=== PATIENT | male | born 1960 | race Hispanic/Latino ===

== ENCOUNTER 2021-02-21 14:53 | Inpatient (IN) | payer OTHER ==
[2021-02-21 15:38] LABS: Urine Blood 3+ (Negative); Urine Glucose 2+ (Negative); Urine Protein 3+ (Negative); Urine pH 5.5 (5.0-7.0)
[2021-02-21 15:42] LABS: Absolute Lymphocytes (CBC) 0.7 K/uL (0.7-4.9); Basophils % 0.1 % (0-1.3); Hematocrit 42.7 % (39.6-49.0); Lymphocytes % 6.3 % (15.3-44.8); MPV 9.9 fL (7.6-11.3); RBC Red Blood Cell Count 4.46 M/uL (4.33-5.43)
[2021-02-21] MEDS ORDERED: NA CHLORIDE 0.9% 4,000 ML ONE (15:56)
[2021-02-21] MEDS ORDERED: CEFEPIME 2 GM VIAL ONE (15:56)
[2021-02-21] MEDS ORDERED: NA CHLORIDE 0.9% 100 ML ONE (15:56)
[2021-02-21 16:03] LABS: ALT/SGPT 73 U/L (12-78); AST/SGOT 30 U/L (15-37); Albumin 3.8 g/dL (3.4-5.0); Alkaline Phosphatase 73 U/L (45-117); BUN Blood Urea Nitrogen 22 mg/dL (7-18); Bicarbonate 24 mmol/L (21-32); Bilirubin Direct 0.3 mg/dL (0-0.2); Bilirubin Total 0.8 mg/dL (0.2-1.0); Glucose Level 137 mg/dL (74-106); Lipase 105 U/L (73-393); Potassium 3.9 mmol/L (3.5-5.1); Protein, Total 7.2 g/dL (6.4-8.2); Sodium Level 137 mmol/L (136-145); Troponin (Emerg Dept Use Only) < 0.02 ng/mL (0.0-0.045)
--- NOTE | 2021-02-21 16:09 | RAD REPORT ---
EXAM DESCRIPTION: RAD - Chest Single View - 02/21/2021 4:04 pm CLINICAL HISTORY: FEVER Chest pain. COMPARISON: No comparisons FINDINGS: Portable technique limits examination quality. The lungs are grossly clear. The heart is normal in size. No displaced fractures. IMPRESSION: No acute intrathoracic process suspected.
[2021-02-21 16:10] LABS: Urine Bacteria >50 /HPF (NONE SEEN); Urine RBC 20-50 /HPF (NONE SEEN)
[2021-02-21 16:30] LABS: Protime INR 1.09
--- NOTE | 2021-02-21 16:31 | EDPHYS ---
[facility] Name: Darvin Panchal Age: 60 yrs Sex: Male : 1960 Arrival Date: 02/21/2021 Time: 14:56 Bed 2 Private MD: ED Physician Cristofer Torres HPI: 02/21 15:20 This 60 yrs old Male presents to ER via Ambulatory with complaints of Low cp Blood Pressure. 15:20 The patient presents with urinary symptoms, dysuria, urinary frequency, hematuria, cp perineal l pain. 15:20 Onset: The symptoms/episode began/occurred this morning. Associated signs and symptoms: cp Pertinent positives: dysuria, fever, hematuria, nausea, Pertinent negatives: abdominal pain, vomiting. Severity of symptoms: in the emergency department the symptoms are unchanged. Historical: - Allergies: 15:07 No Known Allergies; ca1 - PMHx: 15:07 Diabetes - NIDDM; Hypertension; High Cholesterol; ca1 - PSHx: 15:07 Appendectomy; ca1 - Immunization history:: Client reports receiving the 2nd dose of the Covid vaccine, Client reports receiving the 1st dose of the Covid vaccine, Flu vaccine is not up to date. - Social history:: Smoking status: Patient denies any tobacco usage or history of. ROS: 15:25 Constitutional: Negative for fever, poor PO intake. cp 15:25 Eyes: Negative for injury, pain, redness, and discharge. cp 15:25 ENT: Negative for ear pain, sore throat, difficulty swallowing, difficulty handling secretions. 15:25 Cardiovascular: Negative for chest pain, palpitations. 15:25 Respiratory: Negative for cough, shortness of breath, wheezing. 15:25 Abdomen/GI: Negative for abdominal pain, nausea, vomiting, and diarrhea. 15:25 : Positive for urinary symptoms. 15:25 Neuro: Negative for altered mental status, headache, weakness. 15:25 All other systems are negative. Exam: 15:18 ECG was reviewed by the Attending Physician. cp 15:25 Constitutional: The patient appears in no acute distress, alert, awake, cp non-diaphoretic, non-toxic, well developed, well nourished, obese. 15:25 Head/Face: Normocephalic, atraumatic. cp 15:25 Eyes: Periorbital structures: appear normal, Pupils: equal, round, and reactive to light and accomodation, Extraocular movements: intact throughout, Conjunctiva: normal, no exudate, no injection, Sclera: no appreciated abnormality, Lids and lashes: appear normal, bilaterally. 15:25 ENT: External ear(s): are unremarkable, Nose: is normal, Mouth: Lips: moist, Oral mucosa: moist, Posterior pharynx: Airway: no evidence of obstruction, patent. 15:25 Neck: ROM/movement: is normal, is supple, without pain, no range of motions limitations. 15:25 Chest/axilla: Inspection: normal, Palpation: is normal, no crepitus, no tenderness. 15:25 Cardiovascular: Rate: tachycardic, Rhythm: regular, Edema: is not appreciated, JVD: is not appreciated. 15:25 Respiratory: the patient does not display signs of respiratory distress, Respirations: cp normal, no use of accessory muscles, no retractions, labored breathing, is not present, Breath sounds: are clear throughout, no decreased breath sounds, no stridor, no wheezing. 15:25 Abdomen/GI: Inspection: abdomen appears normal, Bowel sounds: active, all quadrants, cp Palpation: abdomen is soft and non-tender, in all quadrants, rebound tenderness, is not appreciated. 15:25 Back: pain, is absent, ROM is normal. 15:25 Skin: no rash present. 15:25 Neuro: Orientation: to person, place \\T\\ time. Mentation: is normal, Cerebellar function: is grossly normal, Motor: moves all fours, strength is normal, Sensation: is normal. Vital Signs: 15:03 BP 88 / 63; Pulse 131; Resp 18 S; Temp 99.8; Pulse Ox 95% on R/A; Weight 122.47 kg (R); ca1 Height 5 ft. 8 in. (172.72 cm) (R); Pain 5/10; 16:00 BP 81 / 51; Pulse 117; Resp 19 S; Pulse Ox 95% on R/A; jd3 16:30 BP 83 / 52; Pulse 112; Resp 19 S; Pulse Ox 98% on R/A; jd3 17:00 BP 90 / 48; Pulse 113; Resp 18 S; Pulse Ox 99% on R/A; jd3 17:30 BP 79 / 50; Pulse 113; Resp 19 S; Pulse Ox 97% on R/A; jd3 17:45 BP 73 / 59 LA Supine (man/reg); Pulse 130; Resp 20; Pulse Ox 99% on R/A; Pain 2/10; kg 17:45 BP 73 / 47; Pulse 109; Resp 20 S; Pulse Ox 96% on R/A; jd3 18:00 BP 76 / 50; Pulse 111; Resp 19 S; Pulse Ox 95% on R/A; jd3 19:33 BP 89 / 40; Pulse 114; Resp 19; Pulse Ox 95% ; ea 19:52 BP 93 / 51; Pulse 113; Resp 18; Pulse Ox 95% ; ea 20:25 BP 87 / 54; Pulse 110; Resp 20; Pulse Ox 99% ; ea 20:59 BP 97 / 56; Pulse 111; Resp 22; Pulse Ox 100% ; ea 21:10 BP 95 / 62; Pulse 110; Resp 22; Pulse Ox 100% ; ea 15:03 Body Mass Index 41.05 (122.47 kg, 172.72 cm) ca1 Procedures: 19:24 Central Line: the site was prepped with Betadine, in sterile fashion, a triple lumen cp catheter was inserted, in the right femoral vein, in 1 attempts. placement was verified, by blood return, the site was dressed with Tegaderm, using sterile technique, the patient tolerated the procedure, well. MDM: 15:17 Patient medically screened. gely 15:30 Differential diagnosis: UTI, urinary retention, prostatitis, sepsis. cp 16:30 Data reviewed: vital signs, nurses notes, lab test result(s), EKG, radiologic studies, cp plain films. 16:30 Test interpretation: by ED physician or midlevel provider: ECG, plain radiologic cp studies. Counseling: I had a detailed discussion with the patient and/or guardian regarding: the historical points, exam findings, and any diagnostic results supporting the discharge/admit diagnosis, lab results, radiology results, the need for further work-up and treatment in the hospital. Physician consultation: Jona Salazar DO regarding admission, to the medical/surgical unit. patient's condition. 02/21 15:19 Order name: Urine Culture cp 02/21 15:19 Order name: Basic Metabolic Panel; Complete Time: 16:21 cp 02/21 17:21 Interpretation: Normal except: GLUC 137; BUN 22; GFR 64. cp 02/21 15:19 Order name: Blood Culture Adult (2) cp 02/21 15:19 Order name: CBC with Diff; Complete Time: 19:21 02/21 20:47 Interpretation: Normal except: WBC 11.30; PLT 144; STEPHANIE% 90.2; LYM% 6.3; MN% 3.1; NEUT A cp 10.2. 02/21 15:19 Order name: Ckmb; Complete Time: 16:21 cp 02/21 15:19 Order name: Lactate; Complete Time: 16:21 cp 02/21 15:19 Order name: LFT's; Complete Time: 16:21 cp 02/21 15:19 Order name: Lipase; Complete Time: 16:21 cp 02/21 15:19 Order name: Protime (+inr); Complete Time: 17:21 02/21 15:19 Order name: Troponin (emerg Dept Use Only); Complete Time: 16:21 cp 02/21 15:19 Order name: Urine Microscopic Only; Complete Time: 16:21 cp 02/21 15:37 Order name: Urine Dipstick-Ancillary; Complete Time: 17:22 EDME 02/21 17:22 Interpretation: Normal except: UGLUC 2+; UBLD 3+; UPROT 3+; UESTR 3+. cp 02/21 16:29 Order name: COVID-19 : Document "Date of Symptom Onset" if Symptomatic. 02/21 18:06 Order name: CBC Smear Scan; Complete Time: 19:21 EDME 02/21 18:10 Order name: NT PRO-BNP; Complete Time: 20:46 EDME 02/21 18:10 Order name: Basic Metabolic Panel [facility] 02/21 18:10 Order name: Basic Metabolic Panel EDME 02/21 18:10 Order name: Troponin I EDME 02/21 18:10 Order name: Troponin I; Complete Time: 20:46 EDME 02/21 18:10 Order name: Troponin I EDME 02/21 18:10 Order name: Troponin I EDME 02/21 18:11 Order name: CBC with Automated Diff EDME 02/21 18:11 Order name: CBC with Automated Diff EDME 02/21 18:11 Order name: Urinalysis EDME 02/21 18:35 Order name: SARS-COV-2 RT PCR; Complete Time: 19:21 EDME 24 19:57 Order name: Lactate Sepsis 2 HR Follow-up; Complete Time: 20:46 EDMS 05/24 20:20 Order name: Procalcitonin; Complete Time: 20:46 EDMS 05/24 20:46 Interpretation: Abnormal: Procalcitonin 7.98. cp 05/24 15:19 Order name: Chest Single View XRAY; Complete Time: 16:21 cp 02/21 15:19 Order name: Accucheck; Complete Time: 15:24 cp 02/21 15:19 Order name: Cardiac monitoring; Complete Time: 15:24 cp 02/21 15:19 Order name: EKG - Nurse/Tech; Complete Time: 15:24 cp 0524 15:19 Order name: IV Saline Lock - Large Bore; Complete Time: 15:24 cp 02/21 15:19 Order name: Labs collected and sent; Complete Time: 15:24 cp 02/21 15:19 Order name: O2 Per Protocol; Complete Time: 15:24 cp 02/21 15:19 Order name: O2 Sat Monitoring; Complete Time: 15:25 cp 02/21 15:19 Order name: Urine Dipstick-Ancillary (obtain specimen); Complete Time: 19:00 cp 02/21 15:19 Order name: Bladder Scanner: pre and post void; Complete Time: 18:37 cp 24 16:22 Order name: CT Abd/Pelvis - IV Contrast Only; Complete Time: 17:21 cp 24 17:22 Interpretation: Report reviewed. 02/21 18:11 Order name: Consistent Carb (ADA) 2000 EDMS EC:18 Rate is 127 beats/min. Rhythm is regular. DC interval is normal. QRS interval is cp normal. QT interval is normal. Interpreted by me. Reviewed by me. Administered Medications: 15:30 Drug: NS 0.9% (30 ml/kg) 30 ml/kg Route: IV; Rate: bolus; Site: right antecubital; kg 18:02 Follow up: IV Status: Completed infusion; IV Intake: 3660ml kg 15:30 Drug: Cefepime 2 grams Route: IVPB; Rate: 200 ml/hr; Infused Over: 30 mins; Site: right kg antecubital; 16:30 Follow up: Response: No adverse reaction; IV Intake: 100ml kg 16:30 Follow up: IV Status: Completed infusion; IV Intake: 100ml kg 17:00 Drug: Zofran (Ondansetron) 4 mg Route: IVP; Site: right antecubital; kg 18:04 Follow up: Response: No adverse reaction kg 17:49 Drug: LevaQUIN (levofloxacin) 750 mg Volume: 150 ml; Route: IVPB; Infused Over: 90 kg mins; Site: right antecubital; 19:10 Follow up: IV Status: Completed infusion ea 19:31 Drug: Levophed (norepinephrine) (4 mg/250 mL D5W 4 mcg/min Route: IV; Rate: calculated ea rate; Site: right femoral; 19:52 Drug: vancoMYCIN 2 grams Route: IVPB; Rate: calculated rate; Site: right antecubital; ea Disposition: 02/22 09:49 Co-signature as Attending Physician, Cristofer Torres MD I agree with the assessment and gely plan of care. Disposition: 02/21/21 16:30 Hospitalization ordered by Jona Salazar for Inpatient Admission. Preliminary diagnosis are Other sepsis, Urinary tract infection, site not specified. - Bed requested for Intensive Care Unit. - Status is Inpatient Admission. ea - Condition is Stable. - Problem is new. - Symptoms have improved. Signatures: Dispatcher [employer] [facility] Kelli Emmanuel RN RN dw Anderson, Corey, MD MD cha Attema, Lee, DATA ANALYSIS ASSISTANT-C DATA ANALYSIS ASSISTANT-Cla1 Cristofer Vicente PA PA cp Tiera Wharton RN RN ea Acob, Cheryl, RN RN ca1 Graham, Kristen kg Corrections: (The following items were deleted from the chart) 02/21 17:43 16:30 CORONAVIRUS ordered. EDME EDME 18:10 16:30 Hospitalization Ordered by Jona Salazar DO for Inpatient Admission. Preliminary cp diagnosis is Other sepsis; Urinary tract infection, site not specified. Bed requested for Telemetry/MedSurg (Inpatient). Status is Inpatient Admission. Condition is Stable. Problem is new. Symptoms have improved. cp 19:22 18:10 02/21/2021 16:30 Hospitalization Ordered by Jona Salazar DO for Inpatient dw Admission. Preliminary diagnosis is Other sepsis; Urinary tract infection, site not specified. Bed requested for Intensive Care Unit. Status is Inpatient Admission. Condition is Stable. Problem is new. Symptoms have improved. cp 21:18 19:22 02/21/2021 16:30 Hospitalization Ordered by Jona Salazar DO for Inpatient ea Admission. Preliminary diagnosis is Other sepsis; Urinary tract infection, site not specified. Bed requested for Intensive Care Unit. Status is Inpatient Admission. Condition is Stable. Problem is new. Symptoms have improved. dw
--- NOTE | 2021-02-21 16:31 | ER ---
Nurse's Notes [facility] Name: Darvin Panchal Age: 60 yrs Sex: Male : 1960 Arrival Date: 02/21/2021 Time: 14:56 Bed 2 Private MD: Diagnosis: Other sepsis;Urinary tract infection, site not specified Presentation: 02/21 15:03 Chief complaint: Patient states: Woke up this morning, had pain on my RLQ going to my R ca1 lower back. Burning with urination, pressure when trying to urinate. Had a fever this morning. Was at my doctor and they said I have a low BP and I also had a fever. Tylenol taken at 300 mins [employer]POSITE [employer]. Reports blood in urine. Coronavirus screen: Client denies travel out of the [place] in the last 14 days. fever, Client presents with at least one sign or symptom that may indicate coronavirus-19. Standard/surgical mask placed on the client. Provider contacted for isolation considerations. Ebola Screen: Patient negative for fever greater than or equal to 101.5 degrees Fahrenheit, and additional compatible Ebola Virus Disease symptoms Patient denies exposure to infectious person. Patient denies travel to an Ebola-affected area in the 21 days before illness onset. No symptoms or risks identified at this time. Initial Sepsis Screen: Does the patient meet any 2 criteria? Systolic BP < 90 mmHg. HR > 90 bpm. Does the patient have a suspected source of infection? Yes: Dysuria/Frequency/Urgency/UTI. Risk Assessment: Do you want to hurt yourself or someone else? Patient reports no desire to harm self or others. Onset of symptoms was February 21, 2021. 15:03 Method Of Arrival: Ambulatory ca1 15:03 Acuity: FLORECITA 2 ca1 Historical: - Allergies: 15:07 No Known Allergies; ca1 - PMHx: 15:07 Diabetes - NIDDM; Hypertension; High Cholesterol; ca1 - PSHx: 15:07 Appendectomy; ca1 - Immunization history:: Client reports receiving the 2nd dose of the Covid vaccine, Client reports receiving the 1st dose of the Covid vaccine, Flu vaccine is not up to date. - Social history:: Smoking status: Patient denies any tobacco usage or history of. Screenin:00 Abuse screen: Denies threats or abuse. Denies injuries from another. Nutritional kg screening: No deficits noted. Tuberculosis screening: No symptoms or risk factors identified. Fall Risk No fall in past 12 months (0 pts). No secondary diagnosis (0 pts). IV access (20 points). Ambulatory Aid- None/Bed Rest/Nurse Assist (0 pts). Gait- Normal/Bed Rest/Wheelchair (0 pts) Mental Status- Oriented to own ability (0 pts). Total Larose Fall Scale indicates No Risk (0-24 pts). Assessment: 15:45 General: Appears in no apparent distress. Behavior is calm, cooperative, appropriate kg for age, quiet. Pain: Complains of pain in suprapubic area, right lower quadrant and left lower quadrant Pain radiates to low back area, mid back area, left mid back and right mid back Pain currently is 4 out of 10 on a pain scale. at worst was 9 out of 10 on a pain scale. level that patient reports is acceptable is 4 out of 10 on a pain scale. Quality of pain is described as burning, aching, crampy, sharp, Pain began 2-3 days ago. Neuro: No deficits noted. Level of Consciousness is awake, alert, obeys commands, Oriented to person, place, time, situation. Cardiovascular: Heart tones S1 S2 Capillary refill < 3 seconds. Respiratory: Airway is patent Breath sounds are clear bilaterally. GI: Abdomen is distended, obese, Rectal exam: Pt stated, "I get pain in my rectum when I need to urinate." Bowel sounds present X 4 quads. Abd is soft Abdomen is tender to palpation in right lower quadrant and left lower quadrant. : Reports. : No deficits noted. Reports burning with urination, since 02/20 cramping, flank(s) lower quadrant(s) lower back inability to void, since Pt stated it feels like I'm not peeing much. EENT: No deficits noted. Derm: No deficits noted. Musculoskeletal: No deficits noted. 17:00 Reassessment: No changes from previously documented assessment. kg 17:45 Reassessment: Patient states symptoms have not improved. kg 19:10 General: Appears in no apparent distress. Behavior is calm, cooperative, appropriate ea for age. Pain: Complains of pain in left lower quadrant and right lower quadrant and suprapubic area. Neuro: Level of Consciousness is awake, alert, obeys commands, Oriented to person, place, time, situation. Cardiovascular: Patient's skin is warm and dry. Respiratory: Airway is patent Respiratory effort is even, unlabored, Respiratory pattern is regular, symmetrical. Derm: Skin is pink, warm \\T\\ dry. 19:43 Reassessment: Bladder scanned patient after voiding and showed 27 ml in bladder.. kg 20:59 Reassessment: Patient and/or family updated on plan of care and expected duration. Pain ea level reassessed. Patient is alert, oriented x 3, equal unlabored respirations, skin warm/dry/pink. 21:09 Reassessment: Patient and/or family updated on plan of care and expected duration. Pain ea level reassessed. Patient is alert, oriented x 3, equal unlabored respirations, skin warm/dry/pink. Report given to receiving nurse. Pt taken to ED ICU hold area, pt tolerating well. Vital Signs: 15:03 BP 88 / 63; Pulse 131; Resp 18 S; Temp 99.8; Pulse Ox 95% on R/A; Weight 122.47 kg (R); ca1 Height 5 ft. 8 in. (172.72 cm) (R); Pain 5/10; 16:00 BP 81 / 51; Pulse 117; Resp 19 S; Pulse Ox 95% on R/A; jd3 16:30 BP 83 / 52; Pulse 112; Resp 19 S; Pulse Ox 98% on R/A; jd3 17:00 BP 90 / 48; Pulse 113; Resp 18 S; Pulse Ox 99% on R/A; jd3 17:30 BP 79 / 50; Pulse 113; Resp 19 S; Pulse Ox 97% on R/A; jd3 17:45 BP 73 / 59 LA Supine (man/reg); Pulse 130; Resp 20; Pulse Ox 99% on R/A; Pain 2/10; kg 17:45 BP 73 / 47; Pulse 109; Resp 20 S; Pulse Ox 96% on R/A; jd3 18:00 BP 76 / 50; Pulse 111; Resp 19 S; Pulse Ox 95% on R/A; jd3 19:33 BP 89 / 40; Pulse 114; Resp 19; Pulse Ox 95% ; ea 19:52 BP 93 / 51; Pulse 113; Resp 18; Pulse Ox 95% ; ea 20:25 BP 87 / 54; Pulse 110; Resp 20; Pulse Ox 99% ; ea 20:59 BP 97 / 56; Pulse 111; Resp 22; Pulse Ox 100% ; ea 21:10 BP 95 / 62; Pulse 110; Resp 22; Pulse Ox 100% ; ea 15:03 Body Mass Index 41.05 (122.47 kg, 172.72 cm) ca1 ED Course: 14:56 Patient arrived in ED. bp1 15:06 Triage completed. ca1 15:07 Arm band placed on right wrist. ca1 15:09 Cristofer Vicente PA is PHCP. cp 15:09 Cristofer Torres MD is Attending Physician. cp 15:10 Placed in gown. Bed in low position. Call light in reach. Side rails up X2. Adult w/ kg patient. 15:15 Inserted saline lock: 20 gauge in right antecubital area, using aseptic technique. kg 15:20 Keisha Munguia is Primary Nurse. kg 16:04 Inserted saline lock: 20 gauge in left forearm, using aseptic technique. Blood mt collected. 16:05 Chest Single View XRAY In Process Unspecified. EDMS 16:30 Jona Salazar DO is Hospitalizing Provider. cp 17:07 CT Abd/Pelvis - IV Contrast Only In Process Unspecified. EDMS 19:00 Urinalysis Sent. kg 19:00 COVID-19 : Document "Date of Symptom Onset" if Symptomatic. Sent. kg 19:00 Assisted provider with central line placement. Set up central line tray. Triple lumen ea line placed in right femoral. Line placed by Cristofer FALL Placement verified by blood return, Dressed with Tegaderm. 19:33 Patient admitted, IV remains in place. ea Administered Medications: 15:30 Drug: NS 0.9% (30 ml/kg) 30 ml/kg Route: IV; Rate: bolus; Site: right antecubital; kg 18:02 Follow up: IV Status: Completed infusion; IV Intake: 3660ml kg 15:30 Drug: Cefepime 2 grams Route: IVPB; Rate: 200 ml/hr; Infused Over: 30 mins; Site: right kg antecubital; 16:30 Follow up: Response: No adverse reaction; IV Intake: 100ml kg 16:30 Follow up: IV Status: Completed infusion; IV Intake: 100ml kg 17:00 Drug: Zofran (Ondansetron) 4 mg Route: IVP; Site: right antecubital; kg 18:04 Follow up: Response: No adverse reaction kg 17:49 Drug: LevaQUIN (levofloxacin) 750 mg Volume: 150 ml; Route: IVPB; Infused Over: 90 kg mins; Site: right antecubital; 19:10 Follow up: IV Status: Completed infusion ea 19:31 Drug: Levophed (norepinephrine) (4 mg/250 mL D5W 4 mcg/min Route: IV; Rate: calculated ea rate; Site: right femoral; 19:52 Drug: vancoMYCIN 2 grams Route: IVPB; Rate: calculated rate; Site: right antecubital; ea Intake: 16:30 IV: 100ml; Total: 100ml. kg 16:30 IV: 100ml; Total: 200ml. kg 18:02 IV: 3660ml; Total: 3860ml. kg Outcome: 16:30 Decision to Hospitalize by Provider. cp 19:33 Instructed on the need for admit, Demonstrated understanding of instructions. ea 21:11 Admitted to ICU accompanied by nurse, via stretcher, room ED ICU 10, Report called to ea Receiving nurse in ED ICU 21:11 Condition: stable 21:18 Patient left the ED. ea Signatures: Dispatcher [employer] EDMS Cristofer Vicente PA PA cp Thompson, Moriah mt Antunez, Elena, RN RN ea Davies, Jonathon, RN RN jd3 Acob, Cheryl, RN RN [facility] Lesli Raman Kristen kg Corrections: (The following items were deleted from the chart) 19:31 17:50 General: Appears in no apparent distress. Behavior is calm, cooperative, kg appropriate for age, quiet, kg 19:31 17:50 Pain: Complains of pain in suprapubic area, right lower quadrant and left lower kg quadrant Pain radiates to low back area, mid back area, left mid back and right mid back Pain currently is 4 out of 10 on a pain scale. at worst was 9 out of 10 on a pain scale. level that patient reports is acceptable is 4 out of 10 on a pain scale. Quality of pain is described as burning, aching, crampy, sharp, Pain began 2-3 days ago. kg 19:31 17:50 Neuro: No deficits noted. Level of Consciousness is awake, alert, obeys commands, kg Oriented to person, place, time, situation, kg 19:31 17:50 Cardiovascular: Heart tones S1 S2 Capillary refill < 3 seconds kg kg 19:31 17:50 Respiratory: Airway is patent Breath sounds are clear bilaterally. kg kg 19:31 17:50 GI: No deficits noted. kg kg 19:31 17:50 : No deficits noted. kg kg 19:31 17:50 EENT: No deficits noted. kg kg 19:31 17:50 : No deficits noted. Reports burning with urination, since 02/20 cramping, kg flank(s) lower quadrant(s) lower back inability to void, since Pt stated it feels like I'm not peeing much kg 19:31 17:50 Derm: No deficits noted. kg kg 19:31 17:50 Musculoskeletal: No deficits noted. kg kg
--- NOTE | 2021-02-21 17:18 | RAD REPORT ---
EXAM DESCRIPTION: CTAbdomen Pelvis W Contrast - 02/21/2021 5:07 pm CLINICAL HISTORY: Abdominal pain. ABD PAIN COMPARISON: No comparisons TECHNIQUE: Biphasic CT imaging of the abdomen and pelvis was performed with 100 ml non-ionic IV cont rast. All CT scans are performed using dose optimization technique as appropriate and may include automated exposure control or mA/KV adjustment according to patient size. FINDINGS: The lung bases are clear. There is a diffuse fatty liver infiltration pattern. No aggressive liver lesion or biliary dilatation . The spleen, pancreas, adrenal glands and kidneys within limits. No bowel obstruction, free air, free fluid or abscess. The appendix is not identified as a discrete structure, however, no secondary findings of appendicitis are identified. No evidence of significan t lymphadenopathy. No suspicious bony findings. Moderate fat containing left inguinal hernia. Significant thickening of the urinary bladder is present. The fat surrounding the urinary bladder pro state/seminal vesicles is mildly inflamed. IMPRESSION: Significant thickening of urinary bladder is compatible with cystitis. Fat surrounding seminal vesicles, prostate and urinary bladder is mildly inflamed without abscess.
[2021-02-21] MEDS ORDERED: Levofloxacin 750mg IV 750 MG/150 ML BAG IV ONE (17:59)
[2021-02-21] MEDS ORDERED: ONDANSETRON 4 MG/2 ML VIAL ONE ×2 (17:59→22:14)
[2021-02-21] MEDS ORDERED: LABETALOL 20 MG/4ML SYRINGE IV PRN (18:03)
[2021-02-21] MEDS ORDERED: ACETAMINOPHEN 500 MG TAB PO PRN (18:05)
[2021-02-21 18:06] LABS: Platelet Estimate DECR; White Blood Cell Scan OK (OK)
[2021-02-21 18:07] LABS: Blood Morphology Comment NOT SEEN (NOT SEEN)
--- NOTE | 2021-02-21 18:12 | P.HP ---
Certification for Inpatient Patient admitted to: Inpatient With expected LOS: >2 Midnights Patient will require the following post-hospital care: None Practitioner: I am a practitioner with admitting privileges, knowledge of patient current condition, hospital course, and medical plan of care. Services: Services provided to patient in accordance with Admission requirements found in Title 42 Section 412.3 of the Code of Federal Regulations Patient History Date of Service: 02/21/21 Reason for admission: UTI History of Present Illness: Patient is a 60-year-old male with a past medical history significant for BPH, hypertension, DM 2 and HLD who presents with complaint of suprapubic pain and burning with urination. Patient reports that pain radiates down his groin area, prostate\ scrotum and bilateral lower extremities. Patient reported that symptoms started yesterday. Patient reports associated signs and symptoms of urinary urgency, difficulty with urination, mild hematuria and nausea. Patient indicated that he has been taking advil for his fever. Patient reported that he went to see his PCP today and was referred by his PCP to come to the hospital for medical evaluation due to fever and low blood pressure. Home medications list reviewed: No - Past Medical/Surgical History -: BPH -: DM2 -: HTN -: HLD Past Surgical History: Unable to obtain - Social History Smoking Status: Former smoker Alcohol use: Yes CD- Drugs: No Caffeine use: Yes Place of Residence: Home Review of Systems General: Fever, Malaise Eyes: Unremarkable ENT: Unremarkable Respiratory: Unremarkable Cardiovascular: Unremarkable Gastrointestinal: Nausea, Abdominal Pain Genitourinary: Dysuria, Frequency, Urgency, Hematuria, As per HPI Integumentary: Unremarkable Neurological: Unremarkable Lymphatics: Unremarkable Physical Examination - Physical Exam General: Alert, In no apparent distress, Oriented x3 HEENT: Atraumatic, PERRLA, Mucous membr. moist/pink, EOMI, Sclerae nonicteric Neck: Supple, 2+ carotid pulse no bruit, No LAD, Without JVD or thyroid abnormality Respiratory: Clear to auscultation bilaterally, Normal air movement Cardiovascular: No edema, Regular rate/rhythm, Normal S1 S2 Capillary refill: Brisk Gastrointestinal: Normal bowel sounds, Tenderness (Suprapubic ) Musculoskeletal: No clubbing, No tenderness Integumentary: No rashes, No erythema Neurological: Normal gait, Normal speech, Normal strength at 5/5 x4 extr, Normal tone, Normal affect Lymphatics: No axilla or inguinal lymphadenopathy External genitalia: Deferred Rectal: Deferred - Studies Laboratory Data (last 24 hrs) 02/21/21 15:20: PT 12.5, INR 1.09 02/21/21 15:20: WBC 11.30 H, Hgb 14.0, Hct 42.7, Plt Count 144 L 02/21/21 15:20: Sodium 137, Potassium 3.9, BUN 22 H, Creatinine 1.17, Glucose 137 H, Total Bilirubin 0.8, AST 30, ALT 73, Alkaline Phosphatase 73, Lipase 105 Assessment and Plan - Plan --Sepsis with septic shock. Patient admitted to ICU. Blood cultures pending. Patient given bolus IV hydration in the ER but did not respond appropriately. Patient placed on Levophed drip. Continue antibiotics. Will continue to monitor BP and titrate Drip as appropriate. --Severe UTI POA. Continue antibiotics. --Lactic acidosis. Will trend lactic acid. Continue IV hydration and antibiotics. --Mild leukocytosis. Blood cultures pending. Continue antibiotics. --Prostatitis. As noted on CT abdomen. Continue antibiotics. --Acute pain. We will manage pain with current pain medication regimen. --BPH. Continue home medication. --DM 2. BS monitoring with sliding scale insulin. --HLD. Continue statin. -- DVT prophylaxis with Lovenox subQ. Discharge Plan: Home Plan to discharge in: Greater than 2 days - Advance Directives Does patient have a Living Will: No Does patient have a Durable POA for Healthcare: No - Code Status/Comfort Care Code Status Assessed: Yes Code Status: Full Code Critical Care: No
[2021-02-21] MEDS ORDERED: NA CHLORIDE 0.9% 1,000 ML IV SCH (19:00)
[2021-02-21] MEDS ORDERED: NOREPINEPHRINE 4mg/D5W 250mL 4 MG/250 ML BAG IV ONE (19:29)
[2021-02-21] MEDS ORDERED: VANCOMYCIN 1 GM/VIAL ONE (19:58)
[2021-02-21] MEDS ORDERED: NA CHLORIDE 0.9% 500 ML ONE (19:58)
[2021-02-21] MEDS ORDERED: NOREPINEPHRINE 4 MG in D5W 250 ML IV PRN (20:52)
[2021-02-21] MEDS ORDERED: VANCOMYCIN/NS 1 gm 1 GM/250 ML BAG IVPB SCH (20:52)
[2021-02-21] MEDS: INSULIN -REGULAR HUMAN 50 UNIT/0.5 ML ML SQ SCH (21:00)
[2021-02-21] MEDS ORDERED: CEFEPIME 1 GM/VIAL IV SCH (21:00)
[2021-02-21] MEDS ORDERED: CEFTRIAXONE/SWI 1gm 1 GM/10 ML SYR IV SCH (21:00)
[2021-02-21 21:46] VITALS: BMI 41.0
[2021-02-21] MEDS: ONDANSETRON 4 MG/2 ML VIAL IV PRN (21:57)
[2021-02-21] MEDS: NA CHLORIDE 0.9% 1,000 ML IV SCH (21:57)
[2021-02-21] MEDS ORDERED: ATORVASTATIN 20 MG TAB ONE (22:14)
[2021-02-21] MEDS ORDERED: NA CHLORIDE 0.9% 1,000 ML ONE (22:14)
--- NOTE | 2021-02-21 22:31 | P.INFCA ---
Sepsis Focused Assessment - Focused Assessment Complete? Sepsis Focused Assessment Completed?: Yes - Sepsis Screen Result Septic Shock: Positive - Evaluation Current stage of sepsis: Septic shock - Vital Signs Reviewed: Yes Heart rate: 110 Blood Pressure: 95/62 Respiratory Rate: 22 - Examination Date exam was performed: 02/21/21 Time exam was performed: 21:30 Heart: S1, S2, Tachycardia Lungs: Clear bilaterally Peripheral pulses: 2+ Slightly diminished Peripheral pulse location: Radial Capillary refill: <2 Seconds Skin examination: Normal turgor
[2021-02-21] MEDS ORDERED: ATORVASTATIN 40 MG TAB PO ONE (23:00)
[2021-02-22] MEDS ORDERED: NOREPINEPHRINE 4mg/D5W 250mL 4 MG/250 ML BAG IV ONE (01:34)
[2021-02-22] MEDS: NA CHLORIDE 0.9% 1,000 ML IV SCH ×3 (04:43→20:06)
[2021-02-22] MEDS ORDERED: NA CHLORIDE 0.9% 1,000 ML ONE ×2 (05:01→12:15)
[2021-02-22 05:19] LABS: Absolute Lymphocytes (CBC) 0.9 K/uL (0.7-4.9); Basophils % 0.1 % (0-1.3); Hematocrit 37.5 % (39.6-49.0); Lymphocytes % 4.9 % (15.3-44.8); RBC Red Blood Cell Count 3.93 M/uL (4.33-5.43)
[2021-02-22 05:36] LABS: Potassium 4.6 mmol/L (3.5-5.1)
[2021-02-22 06:43] LABS: Platelet Estimate DECR
[2021-02-22 06:44] LABS: Blood Morphology Comment NOT SEEN (NOT SEEN)
[2021-02-22] MEDS: INSULIN -REGULAR HUMAN 50 UNIT/0.5 ML ML SQ SCH ×4 (07:29→21:00)
[2021-02-22] MEDS ORDERED: PNEUMOCOCCAL VACCINE 0.5 ML IMVAC ONE (09:00)
[2021-02-22] MEDS: ENOXAPARIN 40 MG/0.4 ML SQ SCH (09:31)
[2021-02-22] MEDS: CEFEPIME/SWI 1gm 10 ML IV SCH ×2 (09:31→22:15)
[2021-02-22] MEDS: HYDROCODONE/APAP 5/325 MG TAB PO PRN ×3 (09:40→22:04)
[2021-02-22] MEDS ORDERED: CEFEPIME/SWI 1gm 10 ML ONE ×2 (09:46→22:27)
[2021-02-22] MEDS ORDERED: ENOXAPARIN 40 MG/0.4 ML SQ ONE (09:46)
[2021-02-22] MEDS ORDERED: HYDROCODONE/APAP 5/325 MG TAB ONE ×2 (09:59→16:01)
[2021-02-22 10:00] LABS: Urine Appearance TURBID (Clear); Urine Bilirubin NEGATIVE (Negative); Urine Blood 2+ (Negative); Urine Color YELLOW (Yellow); Urine Glucose 3+ (Negative); Urine Protein TRACE (Negative); Urine Urobilinogen 0.2 mg/dL (0.2-1.0); Urine pH 5.5 (5.0-7.0)
[2021-02-22 10:04] LABS: Urine Microscopic Reflex ORDER UMIC
[2021-02-22 10:27] LABS: Urine RBC 20-50 /HPF (NONE SEEN)
[2021-02-22 10:29] LABS: Urine Bacteria 20-50 /HPF (NONE SEEN)
[2021-02-22 10:30] LABS: Urine Sperm PRESENT (NONE SEEN)
--- NOTE | 2021-02-22 11:33 | EKG ---
Test Date: 2021-02-21 Test Time: 15:12:02 Hat Mender: TYRONE MEASUREMENT RESULTS: Intervals: Rate: 127 KS: 130 QRSD: 100 QT: 298 QTc: 433 [place]: P: 63 KS: 130 QRS: 85 T: 47 INTERPRETIVE STATEMENTS: Sinus tachycardia Otherwise normal ECG No previous ECG available for comparison Electronically Signed On 02-22-21 11:31:09 CDT by Juanito Coffey
[2021-02-22] MEDS: VANCOMYCIN 2 GM in NA CHLORIDE 0.9% 500 ML IVPB SCH (14:22)
--- NOTE | 2021-02-22 17:24 | P.PN ---
Subjective Date of Service: 02/22/21 Chief Complaint: UTI Subjective: Improving (levophed weaned off this morning, patient feeling better, continues with some dysuria and headache.) Review of Systems 10-point ROS is otherwise unremarkable Physical Examination - Vital Signs Temperature: 98.7 F Blood Pressure: 115/74 Pulse: 99 Respirations: 21 Pulse Ox (%): 96 - Studies Laboratory Data (last 24 hrs) 02/21/21 15:20: WBC 11.30 H, Hgb 14.0, Hct 42.7, Plt Count 144 L Assessment & Plan Physician Review Additional Text: Physical Exam General: Alert, In no apparent distress, Oriented x3 HEENT: Normal conjunctiva, sclerae anicteric, PERRL Respiratory: Clear to auscultation bilaterally, Normal air movement Cardiovascular: No edema, Regular rate/rhythm, Normal S1 S2 Gastrointestinal: Normal bowel sounds, mild suprapubic TTP, no rebound Integumentary: No rashes, No erythema Neurological: Normal gait, Normal speech, Normal strength at 5/5 x4 extr Assessment and Plan Sepsis with septic shock secondary to urinary tract infection/prostatitis Bladder pressure/pain BPH Diabetes mellitus type 2, onv-gogcrwv-jxwwogenc HLD -continue empiric antibiotic coverage with cefepime and vancomycin -Levophed weaned off this morning -patient's blood pressure has not remained stable off the pressor support -patient has okay to be transferred to the floor -continue gentle IV fluids, patient with minimal p.o. intake -patient reports rectal pressure along with suprapubic pain was pressure, and dysuria. Concern for prostatitis -urine and blood cultures pending Dispo: anticipate dc home, likely in ~2 days, pending cultures, unclear if will need IV antibiotics at this time Time Spent Managing Pts Care (In Minutes): 40
[2021-02-22] MEDS: ATORVASTATIN 40 MG TAB PO SCH (20:07)
[2021-02-22] MEDS ORDERED: CEFOXITIN SODIUM 1 GM/VIAL ONE (21:05)
[2021-02-22] MEDS: ONDANSETRON 4 MG/2 ML VIAL IV PRN (22:04)
[2021-02-23] MEDS: HYDROCODONE/APAP 5/325 MG TAB PO PRN ×4 (04:23→23:09)
[2021-02-23] MEDS: NA CHLORIDE 0.9% 1,000 ML IV SCH (06:12)
[2021-02-23 06:16] LABS: Absolute Lymphocytes (CBC) 0.7 K/uL (0.7-4.9); Basophils % 0.2 % (0-1.3); Hematocrit 35.3 % (39.6-49.0); MPV 9.5 fL (7.6-11.3); RBC Red Blood Cell Count 3.65 M/uL (4.33-5.43)
[2021-02-23 06:48] LABS: ALT/SGPT 39 U/L (12-78); AST/SGOT 18 U/L (15-37); Albumin 2.7 g/dL (3.4-5.0); Alkaline Phosphatase 58 U/L (45-117); BUN Blood Urea Nitrogen 12 mg/dL (7-18); Bicarbonate 22 mmol/L (21-32); Bilirubin Total 0.6 mg/dL (0.2-1.0); Glucose Level 100 mg/dL (74-106); Protein, Total 6.1 g/dL (6.4-8.2); Sodium Level 141 mmol/L (136-145)
[2021-02-23 06:49] LABS: Magnesium 1.9 mg/dL (1.8-2.4)
[2021-02-23 07:05] LABS: Blood Morphology Comment NOT SEEN (NOT SEEN); Platelet Estimate DECR; White Blood Cell Scan OK (OK)
[2021-02-23] MEDS: INSULIN -REGULAR HUMAN 50 UNIT/0.5 ML ML SQ SCH ×4 (07:30→21:00)
[2021-02-23] MEDS: ENOXAPARIN 40 MG/0.4 ML SQ SCH (08:36)
[2021-02-23] MEDS: VANCOMYCIN 2 GM in NA CHLORIDE 0.9% 500 ML IVPB SCH (09:00)
[2021-02-23] MEDS: CEFEPIME/SWI 1gm 10 ML IV SCH ×2 (09:51→21:43)
[2021-02-23] MEDS ORDERED: ACETAMINOPHEN 500 MG TAB PO PRN (16:06)
--- NOTE | 2021-02-23 16:10 | P.PN ---
Subjective Date of Service: 02/23/21 Chief Complaint: UTI Subjective: Improving (feeling better, vitals stable/WNL, mild dysuria, +headache, minimal nausea) Review of Systems 10-point ROS is otherwise unremarkable Physical Examination - Vital Signs Temperature: 98.5 F Blood Pressure: 134/56 Pulse: 85 Respirations: 18 Pulse Ox (%): 97 - Studies Microbiology Data (last 24 hrs): 02/21/21 15:25 Clean Catch Urine [place] Count - Final >100,000 CFU/ML. 02/21/21 15:25 Clean Catch Urine - Final Escherichia Coli Assessment & Plan Physician Review Additional Text: Physical Exam General: Alert, In no apparent distress, Oriented x3 HEENT: Normal conjunctiva, sclerae anicteric, PERRL Respiratory: Clear to auscultation bilaterally, Normal air movement Cardiovascular: No edema, Regular rate/rhythm, Normal S1 S2 Gastrointestinal: Normal bowel sounds, no tenderness Integumentary: No rashes, No erythema Neurological: Normal gait, Normal speech, normal affect Assessment and Plan Sepsis with septic shock secondary to urinary tract infection/prostatitis Bladder pressure/pain BPH Diabetes mellitus type 2, wom-nmxseos-rxuzfnoni HLD -continue empiric antibiotic coverage with cefepime and vancomycin, urine culture with GNR, blood NGTD, can likely dc vanc today -vitals stable, WNL -leukocytosis improved -dc IVF, tolerating more diet -final urine and blood cultures pending Dispo: anticipate dc home, likely tomorrow, unclear if will need IV antibiotics at this time, pending cultures Time Spent Managing Pts Care (In Minutes): 35
[2021-02-23] MEDS: ATORVASTATIN 40 MG TAB PO SCH (21:43)
[2021-02-24 03:51] LABS: Absolute Lymphocytes (CBC) 0.7 K/uL (0.7-4.9); Basophils % 0.1 % (0-1.3); Hematocrit 33.9 % (39.6-49.0); Lymphocytes % 9.8 % (15.3-44.8); MPV 9.2 fL (7.6-11.3); RBC Red Blood Cell Count 3.58 M/uL (4.33-5.43)
[2021-02-24 04:05] LABS: ALT/SGPT 39 U/L (12-78); AST/SGOT 22 U/L (15-37); Albumin 2.5 g/dL (3.4-5.0); Alkaline Phosphatase 59 U/L (45-117); BUN Blood Urea Nitrogen 10 mg/dL (7-18); Bicarbonate 25 mmol/L (21-32); Bilirubin Total 0.5 mg/dL (0.2-1.0); Glucose Level 120 mg/dL (74-106); Magnesium 1.7 mg/dL (1.8-2.4); Potassium 3.8 mmol/L (3.5-5.1); Protein, Total 6.2 g/dL (6.4-8.2); Sodium Level 141 mmol/L (136-145)
[2021-02-24] MEDS: HYDROCODONE/APAP 5/325 MG TAB PO PRN (06:07)
[2021-02-24] MEDS: INSULIN -REGULAR HUMAN 50 UNIT/0.5 ML ML SQ SCH (07:30)
--- NOTE | 2021-02-24 08:32 | P.DS ---
Admission Date: 02/21/21 Discharge Date: 02/24/21 Disposition: ROUTINE DISCHARGE Discharge Condition: GOOD Reason for Admission: Septic Shock, UTI/Prostatitis Procedures: CXR (02/21): The lungs are grossly clear. The heart is normal in size. No displaced fractures. CT Abd/pelvis (02/21): Significant thickening of urinary bladder is compatible with cystitis. Fat surrounding seminal vesicles, prostate and urinary bladder is mildly inf lamed without abscess. Problem list Sepsis with septic shock secondary to urinary tract infection/prostatitis Bladder and rectal pressure/pain BPH Diabetes mellitus type 2, izm-jtspwum-mvxpgilar HLD Brief History of Present Illness: 60-year-old male with a past medical history significant for BPH, hypertension, DM 2 and HLD who presents with complaint of suprapubic pain and burning with urination. Patient reports that pain radiates down his groin area, prostate\ scrotum and bilateral lower extremities. Patient reported that symptoms started yesterday. Patient reports associated signs and symptoms of urinary urgency, difficulty with urination, mild hematuria and nausea. Patient indicated that he has been taking advil for his fever. Patient reported that he went to see his PCP today and was referred by his PCP to come to the hospital for medical evaluation due to fever and low blood pressure. Hospital Course: The patient initially presented with septic shock and required Levophed. He was quickly weaned off of pressors and continued to improve. He remained afebrile, pain improved, leukocytosis resolved. Blood cultures were negative, urine culture grew pansensitive E. coli. Patient was discharged home with 4 weeks of Levaquin to cover for prostatitis. Follow up with PCP in 3-5 days Follow up with urology in 3-4 weeks. Vital Signs/Physical Exam: Physical Exam General: Alert, In no apparent distress, Oriented x3 HEENT: Normal conjunctiva, sclerae anicteric, PERRL Respiratory: Clear to auscultation bilaterally, Normal air movement Cardiovascular: No edema, Regular rate/rhythm, Normal S1 S2 Gastrointestinal: Normal bowel sounds, no tenderness Integumentary: No rashes, No erythema Neurological: Normal gait, Normal speech, normal affect Temp Pulse Resp BP Pulse Ox 98.3 F 80 17 136/72 96 02/24/21 04:00 02/24/21 04:00 02/24/21 06:07 02/24/21 04:00 02/24/21 06:07 Laboratory Data at Discharge: WBC 6.90 K/uL (4.3-10.9) D 02/24/21 03:25 Hgb 11.7 g/dL (13.6-17.9) L 02/24/21 03:25 Hct 33.9 % (39.6-49.0) L 02/24/21 03:25 Plt Count 80 K/uL (152-406) L 02/24/21 03:25 PT 12.5 SECONDS (9.5-12.5) 02/21/21 15:20 INR 1.09 02/21/21 15:20 Sodium 141 mmol/L (136-145) 02/24/21 03:25 Potassium 3.8 mmol/L (3.5-5.1) 02/24/21 03:25 BUN 10 mg/dL (7-18) 02/24/21 03:25 Creatinine 0.55 mg/dL (0.55-1.3) 02/24/21 03:25 Glucose 120 mg/dL (74-106) H 02/24/21 03:25 Magnesium 1.7 mg/dL (1.8-2.4) L 02/24/21 03:25 Total Bilirubin 0.5 mg/dL (0.2-1.0) 02/24/21 03:25 AST 22 U/L (15-37) 02/24/21 03:25 ALT 39 U/L (12-78) 02/24/21 03:25 Alkaline Phosphatase 59 U/L (45-117) 02/24/21 03:25 Troponin I < 0.02 ng/mL (0.0-0.045) 02/22/21 05:00 Lipase 105 U/L (73-393) 02/21/21 15:20 Home Medications: RX: Ascorbic Acid [Vitamin C] 1,000 mg PO DAILY 02/21/21 RX: Echinacea 500 mg PO DAILY 02/21/21 RX: Empagliflozin [Jardiance] 25 mg PO DAILY 02/21/21 RX: Ergocalciferol (Vitamin D2) [Vitamin D2] 125 mg PO DAILY 02/21/21 RX: Furosemide 20 mg PO DAILY 02/21/21 RX: Metoprolol Tartrate [Lopressor*] 25 mg PO DAILY 02/21/21 RX: Potassium Chloride 10 meq PO DAILY 02/21/21 RX: Pravastatin Sodium 40 mg PO BEDTIME 02/21/21 RX: Saxagliptin HCl/Metformin HCl [Kombiglyze Xr 5-1,000 mg Tab] 1 each PO DAILY 02/21/21 RX: Tamsulosin [Flomax*] 0.4 mg PO BEDTIME 02/21/21 RX: lisinopriL [Lisinopril] 40 mg PO DAILY 02/21/21 RX: traMADol HCL [Ultram*] 50 mg PO DAILY 02/21/21 Levofloxacin [Levaquin] 500 mg PO DAILY 28 Days #28 tablet 02/24/21 New Medications: Levofloxacin [Levaquin] 500 mg PO DAILY 28 Days #28 tablet Physician Discharge Instructions: You were found to have acute prostatitis / urinary infection. Your blood did not have bacteria. You improved with antibiotics and discharged home with 4 weeks of levofloxacin. Your blood pressure was low when you came in to the hospital and in the normal range on discharge. Please hold off on restarting blood pressure medication until you follow up with your PCP. Follow up with your PCP in 3-5 days. Recommend obtaining repeat urinalysis and culture in 1 week. Follow up with Urology in 3-4 weeks. Diet: ADA Activity: Ad tatum Followup: RONNIE BROWN [Primary Care Provider] - (call to schedule appointment) Time spent managing pt's care (in minutes): 40
[2021-02-24 08:42] VITALS: BP 127/61; TEMP 96.6
[2021-02-24] MEDS: ENOXAPARIN 40 MG/0.4 ML SQ SCH (08:56)
[2021-02-24] MEDS: CEFEPIME/SWI 1gm 10 ML IV SCH (08:58)
[2021-02-24] MEDS ORDERED: POTASSIUM CL SA 10 MEQ TAB PO ONE (09:00)
[2021-02-24] MEDS ORDERED: MAGNESIUM SULFATE 1 gm IVPB 1 GM/100 ML BAG IV ONE (09:00)
[2021-02-24 11:48] VITALS: O2SAT 95
== END 2021-02-24 09:30 | disposition home or self-care (01) | DRG 871 ==
LOC: ER 14:53 → ERHOLD 18:30 → 4TH 02-22 19:26
PROVIDERS: ADMIT Internal Medicine; ATTEND Hospitalist
PROC: 06HY33Z Insertion of Infusion Device into Lower Vein, Percutaneous Approach (ICD-10-PCS; principal; 2021-02-21)
DX: A41.51 Sepsis due to Escherichia coli [E. coli] (principal); R65.21 Severe sepsis with septic shock; N39.0 Urinary tract infection, site not specified; E87.2 Acidosis; N41.0 Acute prostatitis; E11.9 Type 2 diabetes mellitus without complications; I10 Essential (primary) hypertension; N40.0 Benign prostatic hyperplasia without lower urinary tract symptoms; E78.5 Hyperlipidemia, unspecified; R39.89 Other symptoms and signs involving the genitourinary system; Z90.49 Acquired absence of other specified parts of digestive tract; Z79.899 Other long term (current) drug therapy; Z87.891 Personal history of nicotine dependence; Z20.822 Contact with and (suspected) exposure to COVID-19
CPT/HCPCS: 36415; 71045; 74177; 80048; 80053; 80076; 81003; 81015; 82553; 82947; 83605; 83690; 83735; 83880; 84145; 84484; 85025; 85610; 86140; 87040; 87077; 87086; 87088; 87186; 93005; 99285; J0692; J0694; J1650; J2405; J3370; J3475; J7030; J7040; Q9967; U0003

== ENCOUNTER 2022-02-06 17:55 | Emergency (ER) | payer OTHER ==
--- OUTSIDE RECORDS SUMMARY | 2022-02-06 17:58 | XMS REPORT | Continuity of Care Document ---
:1960 Author Organization [facility] t Address [address] [place] [address] Care Team Providers Name Role Phone Leroy Oliveira MD Primary Care Physician Maria T PROCTOR Attending Clinician Payers Payer Name Policy Type Policy Number Effective Date Expiration Date S ource Problems Condition Condition Condition Status Onset Resolution Last Treating Co mments Source Name Details Category Date Date Treatment Clinician Date Essential Essential Disease Active 2020-10 [place] hypertensi hypertensi 0-21 Co llege on on 00:00: of 00 Medicin e Dyslipidem Dyslipidem Disease Active 2020-10 [place] ia ia 0-21 College 00:00: of 00 Medicin e Localized Localized Disease Active 2020-10 [place] edema edema 0-21 College 00:00: of 00 Medicin e Allergies, Adverse Reactions, Alerts This patient has no known allergies or adverse reactions. Social History Social Habit Start Date Stop Date Quantity Comments Source History [facility] Physical Activity of Medi cine DPW Exposure to Not sure [facility] Colleg e SARS-CoV-2 (event) of Med icine History [facility] Alcohol Frequency of Medi cine History [facility] Colle ge Alcohol Std Drinks of Med icine History [facility] Alcohol Binge of Medicine Tobacco use and 2021-07-21 2021-07-21 Never used [employer] exposure 00:00:00 00:00:00 of Medicine Alcohol intake 2021-07-21 2021-07-21 Current drinker [facility] 00:00:00 00:00:00 of alcohol of Medicine (finding) Alcohol Comment 2021-07-21 2021-07-21 occ [facility] llege 00:00:00 00:00:00 of Medicine History SDOH 2021-07-18 2021-07-18 0 [facility] ge Physical Activity 00:00:00 00:00:00 of Medi cine MPS Sex Ass[birth year] At [birth year] [facility] llege 00:00:00 00:00:00 of Medicine Smoking Status Start Date Stop Date Source Never smoker [facility] o f Medicine Medications Ordered Filled Start Stop Current Ordering Indication Dosage Frequency Signature Comments Components Source Medication Medication Date Date Medication? Clinician (SIG) Name Name potassium 2020-10 Yes 10meq Take 10 [facility] or chloride 0-21 mEq by Medon (MICRO-K) 08:41: mouth two of 10 MEQ 28 times Medicin capsule daily. e Saxagliptin 2020-10 [facility] (KOMBIGLYZE 08:41: of XR) 5-1000 28 Medicin MG TB24 e pioglitazon Yes TAKE 1 [facility] or e (ACTOS) 9-25 TABLET BY Ann ge 30 MG 00:00: MOUTH ONCE of tablet 00 DAILY Medicin e pravastatin Yes TAKE 1 [facility] (PRAVACHOL) 9-22 TABLET BY lege 40 MG 00:00: MOUTH of tablet 00 EVERYDAY Medicin AT BEDTIME e furosemide Yes TAKE 1 [facility] (LASIX) 20 9-17 TABLET BY Timmy ege MG tablet 00:00: MOUTH ONCE of 00 DAILY Medicin e lisinopril Yes TAKE 1 [facility] (PRINIVIL, 9-17 TABLET BY Timmy ege ZESTRIL) 40 00:00: MOUTH ONCE of MG tablet 00 DAILY Medicin e metoprolol Yes TAKE 1 [facility] (TOPROL-XL) 9-17 TABLET BY Col lege 25 MG XL 00:00: MOUTH ONCE of tablet 00 DAILY Medicin e Tamsulosin 2021-0 Yes TAKE 1 [facility] HCl 0.4 MG 9-17 CAPSULE BY Col lege CAPS 00:00: MOUTH ONCE of 00 DAILY Medicin e Vital Signs Vital Name Observation Time Observation Value Comments Source Systolic blood 2021-07-21 13:37:00 130 mm[Hg] [facility] Medicine Diastolic blood 2021-07-21 13:37:00 74 mm[Hg] [facility] Heart rate 2021-07-21 13:37:00 74 /min [facility] Respiratory rate 2021-07-21 13:37:00 16 /min [facility] Body height 2021-07-21 13:37:00 172.7 cm [facility] Body weight 2021-07-21 13:37:00 119.296 kg [facility] BMI 2021-07-21 13:37:00 39.99 kg/m2 [facility] Oxygen saturation in 2021-07-21 13:37:00 99 /min [facility] Arterial blood by [facility] Pulse oximetry Procedures Procedure Date / Time Performing Clinician Source Performed ELECTROCARDIOGRAM COMPLETE 2021-07-21 13:41:00 Massimo Live [facility] Plan of Care Planned Activity Planned Date Details Comments Source Future Scheduled 2021-07-21 Screening for malignant [facility] Test 08:39:34 neoplasm of colon of Medicin e (procedure) [code = 636212881] Future Scheduled 2021-07-21 TETANUS SHOT (ADULT) [code [facility] Test 08:39:34 = TETANUS SHOT (ADULT)] of M edicine Future Scheduled 2021-07-21 BMI FOLLOW UP PLAN [code = [facility] Test 08:39:34 BMI FOLLOW UP PLAN] of Medic ine Future Scheduled 2021-07-21 Hepatitis C screening [facility] Test 08:39:34 (procedure) [code = of Medic ine 761105083] Future Scheduled 2021-07-21 Human immunodeficiency [facility] Test 08:39:34 virus screening of Medicine (procedure) [code = 991076471] Future Scheduled 2021-07-21 ZOSTER VACCINE (1 of 2) [facility] Test 08:39:34 [code = ZOSTER VACCINE (1 of Medicine of 2)] Future Scheduled 2021-07-21 FLU VACCINE > 6 MONTHS [facility] Test 08:39:34 [code = FLU VACCINE > 6 of M edicine MONTHS] Future Scheduled 2021-07-21 ELECTROCARDIOGRAM COMPLETE [facility] Test 08:39:10 [code = 96638] of Medicine Encounters Start End Encounter Admission Attending Care Care Encounter Source Date/Time Date/Time Type Type Clinicians Facility Department ID 2021-10-26 Outpatient [facility] NPI:[id number] 13:54:54 [id number] 2021-10-26 Outpatient [facility] NPI:174 13:51:32 [id number] 2021-10-26 Outpatient [facility] [id number] NPI:174 13:46:23 [id number] 2021-10-26 Outpatient [facility] NPI:174 13:28:16 [id number] 2021-10-26 Outpatient [facility] NPI:174 13:17:06 [id number] 2021-10-26 Outpatient [facility] NPI:174 13:10:17 [id number] 2021-07-21 2021-07-21 Office ALEJANDRA Live [id number] [facility] 07:57:26 09:49:27 Visit Massimo AMBULATOR [id number] College Y [id number] Medi pasacle 375 e 2021-07-06 2021-07-06 Outpatient [facility]MLC ST[facility] [id number] NPI:174 00:00:00 00:00:00 [id number] 2021-07-04 2021-07-04 Outpatient [facility] ST[facility] [id number] NPI:174 00:00:00 00:00:00 [id number] 2021-06-21 2021-06-21 Outpatient [facility] [id number] NPI:174 00:00:00 00:00:00 [id number] 2021-03-03 2021-03-03 Outpatient [facility] ST[facility] [id number] NPI:[id number] 00:00:00 00:00:00 [id number] Results Test Description Test Time Test Comments Results Result Comments Source SARS-CoV-2 (COVID-19), RT-PCR/TMA 2021-10-26 08:40:41 Test Item Value Reference Range Interpretation Comme nts SARS-CoV-2 INTERPRETATION NEGATIVE SEE NOTE S ARS-CoV-2 RNA NOT (test code = 89759) DETECTED Negative results do not preclude SARS-C oV-2 infection and should notb e used as the sole basis for patient management deci sions. Negativeresults must be combined with clinical o bservations, patient history ,and epidemiological information. Optimum specime n types and timingfor peak viral levels during infectio ns caused by SARS-CoV-2 have notbeen determined. Col lection of multiple specim ens or types ofspecimens may be necessary to detect virus. I mproper specimencollect ion and handling, sequence variab ility under primers/probes, or organism present below t he limit of detection may l ead to falsenegative r esults. Positive and negative pr edictive values oftesting are h ighly dependent on prevalence. False negative testresults are more likely when prevalence is h igh. SOURCE (test code = 22033) NASOPHARYNGEAL Note: Methodology is Jenna Brain Real-Time RT-PCR. The expected r esult or reference range is NEGATIVE (Not Detected). For more information regarding COVID -19 testing to include clinica linformation, methodology det ail, intended use, FDA author ization andrecommended fact sheets for patients or a lthcare providers, see NewTest Announcement: S ARS-CoV-2 (COVID-19) by N AAT at URL below (note,fact shee ts are provided by method given in report:https:// [email or web address] linicians/randy t-communications/ Alternatively, see downloadable PDF fact sheet at:https://www. [employer]/COVID -19-RT-PCR UNLESS OTHERWISE INDIC ATED, ALL TESTING PERFORMED [facility] [place]. [address] [place] [address] LABORATORY DIRE CTOR: MARTHA MORENO M.D. CLIA NUMBER [id number] [place]. [id number]
[2022-02-06 18:25] LABS: Absolute Lymphocytes (CBC) 1.2 K/uL (0.7-4.9); Hematocrit 38.3 % (39.6-49.0); Lymphocytes % 14.3 % (15.3-44.8); MPV 8.9 fL (7.6-11.3)
[2022-02-06 18:43] LABS: Potassium 4.8 mmol/L (3.5-5.1); Troponin High Sensitivity 4.6 pg/mL (<58.9)
--- NOTE | 2022-02-06 18:51 | RAD REPORT ---
EXAM DESCRIPTION: RAD - Chest Single View - 02/06/2022 6:42 pm CLINICAL HISTORY: CHEST PAIN Chest pain. COMPARISON: Chest Single View dated 02/21/2021 FINDINGS: Portable technique limits examination quality. The lungs are grossly clear. The heart is normal in size. No displaced fractures. IMPRESSION: No acute intrathoracic process suspected.
--- NOTE | 2022-02-06 19:18 | RAD REPORT ---
EXAM DESCRIPTION: CT - Chest For Pe Angio - 02/06/2022 7:10 pm CLINICAL HISTORY: Chest pain. Chest Pain COMPARISON: No comparisons TECHNIQUE: CT angiogram of the pulmonary arteries was performed with MIP. All CT scans are performed using dose optimization technique as appropriate and may include automated exposure control or mA/KV adjustment according to patient size. FINDINGS: No evidence of pulmonary thromboembolism. No acute aortic finding demonstrated. The lungs are clear. No significant pericardial or pleural fluid. No concerning bony finding. IMPRESSION: No evidence of pulmonary thromboembolism. No acute lung findings.
--- NOTE | 2022-02-06 19:26 | ER ---
Nurse's Notes [facility] Name: Darvin Panchal Age: 61 yrs Sex: Male : 1960 Arrival Date: 02/06/2022 Time: 17:59 Bed 30 Private MD: Diagnosis: Chest pain, unspecified;Upper Back Pain Presentation: 02/06 18:04 Chief complaint: Patient states: right sided chest pain since last night, radiates from iw back to chest, both hands feel cold and numb , pain comes and goes and only in a certain position. Coronavirus screen: At this time, the client does not indicate any symptoms associated with coronavirus-19. Ebola Screen: Patient negative for fever greater than or equal to 101.5 degrees Fahrenheit, and additional compatible Ebola Virus Disease symptoms Patient denies exposure to infectious person. Patient denies travel to an Ebola-affected area in the 21 days before illness onset. No symptoms or risks identified at this time. Initial Sepsis Screen: Does the patient meet any 2 criteria? No. Patient's initial sepsis screen is negative. Does the patient have a suspected source of infection? No. Patient's initial sepsis screen is negative. Risk Assessment: Do you want to hurt yourself or someone else? Patient reports no desire to harm self or others. Onset of symptoms was February 05, 2022. 18:04 Method Of Arrival: Ambulatory iw 18:04 Acuity: FLORECITA 3 iw Historical: - Allergies: 18:05 No Known Allergies; iw - PMHx: 18:05 Diabetes - NIDDM; High Cholesterol; Hypertension; iw - Immunization history:: Client reports receiving the 2nd dose of the Covid vaccine. - Social history:: Smoking status: Patient denies any tobacco usage or history of. Screenin:18 Abuse screen: Denies threats or abuse. Denies injuries from another. Nutritional ld1 screening: No deficits noted. Tuberculosis screening: No symptoms or risk factors identified. Fall Risk None identified. Assessment: 18:18 General: Appears in no apparent distress. comfortable, Behavior is calm, cooperative, ld1 appropriate for age. Pain: Complains of pain in chest Pain does not radiate. Pain currently is 8 out of 10 on a pain scale. Quality of pain is described as shooting, throbbing, Pain began gradually, Is intermittent. Neuro: Level of Consciousness is awake, alert, obeys commands, Oriented to person, place, time, situation. Cardiovascular: Capillary refill < 3 seconds Patient's skin is warm and dry. Rhythm is sinus rhythm. Respiratory: Airway is patent Respiratory effort is even, unlabored. GI: Abdomen is round non-distended, obese. : No signs and/or symptoms were reported regarding the genitourinary system. EENT: No signs and/or symptoms were reported regarding the EENT system. Derm: No signs and/or symptoms reported regarding the dermatologic system. Musculoskeletal: No signs and/or symptoms reported regarding the musculoskeletal system. 19:29 Reassessment: Patient and/or family updated on plan of care and expected duration. Pain ag7 level reassessed. Patient is alert, oriented x 3, equal unlabored respirations, skin warm/dry/pink. Patient states feeling better. Pain: Complains of pain in chest Pain does not radiate. Pain currently is 8 out of 10 on a pain scale. Quality of pain is described as aching, Pain began suddenly, Is continuous, Alleviated by nothing. Vital Signs: 18:04 BP 152 / 87; Pulse 78; Resp 16; Temp 96.8; Pulse Ox 99% on R/A; Weight 117.93 kg; iw Height 5 ft. 8 in. (172.72 cm); 19:15 BP 127 / 58; Pulse 69; Resp 20; Pulse Ox 100% ; Pain 8/10; ag7 18:04 Body Mass Index 39.53 (117.93 kg, 172.72 cm) iw ED Course: 17:59 Patient arrived in ED. as 18:05 Triage completed. iw 18:06 Arm band placed on. iw 18:08 Bryn Cohn PA is PHCP. jr8 18:08 Cristofer Torres MD is Attending Physician. jr8 18:17 Hayley Schwartz, JUAREZ is Primary Nurse. ld1 18:18 Patient has correct armband on for positive identification. Placed in gown. Bed in low ld1 position. Call light in reach. Side rails up X2. manager monitoring on. Pulse ox on. NIBP on. Door closed. Noise minimized. Warm blanket given. 18:18 No provider procedures requiring assistance completed. ld1 18:43 XRAY Chest (1 view) In Process Unspecified. EDMS 19:12 CT Chest For PE Angio In Process Unspecified. EDMS 19:43 IV discontinued, intact, bleeding controlled, No redness/swelling at site. Pressure ag7 dressing applied. Administered Medications: No medications were administered Outcome: : Discharge ordered by . abdon 19:43 Discharged to home ambulatory. ag7 19:43 Condition: stable 19:43 Discharge instructions given to patient, Instructed on discharge instructions, follow up and referral plans. medication usage, Demonstrated understanding of instructions, follow-up care, medications, Prescriptions given X 1. 19:43 Patient left the ED. ag7 Signatures: Dispatcher [employer] EDThu Fenton Irene RN RN iw Bryn Cohn PA PA jr8 Hayley Schwartz RN RN ld1 Mildred Sainz RN RN ag7
--- NOTE | 2022-02-06 19:26 | EDPHYS ---
Physician Documentation [facility] Name: Darvin Panchal Age: 61 yrs Sex: Male : 1960 Arrival Date: 02/06/2022 Time: 17:59 Bed 30 Private MD: ED Physician Cristofer Torres HPI: 02/06 19:24 This 61 yrs old Male presents to ER via Ambulatory with complaints of Back jr8 Pain, Chest Pain. 19:24 Onset: The symptoms/episode began/occurred gradually. Associated signs and symptoms: jr8 The patient has no apparent associated signs or symptoms. Modifying factors: The patient symptoms are alleviated by remaining still, rest, the patient symptoms are aggravated by movement. Severity of symptoms: At their worst the symptoms were moderate, in the emergency department the symptoms have improved, mildly. The patient has not experienced similar symptoms in the past. The patient has not recently seen a physician. Historical: - Allergies: 18:05 No Known Allergies; iw - PMHx: 18:05 Diabetes - NIDDM; High Cholesterol; Hypertension; iw - Immunization history:: Client reports receiving the 2nd dose of the Covid vaccine. - Social history:: Smoking status: Patient denies any tobacco usage or history of. ROS: 19:24 Eyes: Negative for injury, pain, redness, and discharge, ENT: Negative for injury, jr8 pain, and discharge, Neck: Negative for injury, pain, and swelling, Respiratory: Negative for shortness of breath, cough, wheezing, and pleuritic chest pain, Abdomen/GI: Negative for abdominal pain, nausea, vomiting, diarrhea, and constipation, MS/Extremity: Negative for injury and deformity, Skin: Negative for injury, rash, and discoloration, Neuro: Negative for headache, weakness, numbness, tingling, and seizure. 19:24 Cardiovascular: Positive for chest pain, Negative for edema, orthopnea, palpitations, paroxysmal nocturnal dyspnea. 19:24 Back: Positive for pain with movement, radiated pain, Negative for decreased range of motion. Exam: 19:24 Constitutional: This is a well developed, well nourished patient who is awake, alert, jr8 and in no acute distress. Neck: Trachea midline, no thyromegaly or masses palpated, and no cervical lymphadenopathy. Supple, full range of motion without nuchal rigidity, or vertebral point tenderness. No Meningismus. Chest/axilla: Normal chest wall appearance and motion. Nontender with no deformity. No lesions are appreciated. Cardiovascular: Regular rate and rhythm with a normal S1 and S2. No gallops, murmurs, or rubs. Normal PMI, no JVD. No pulse deficits. Respiratory: Lungs have equal breath sounds bilaterally, clear to auscultation and percussion. No rales, rhonchi or wheezes noted. No increased work of breathing, no retractions or nasal flaring. Abdomen/GI: Soft, non-tender, with normal bowel sounds. No distension or tympany. No guarding or rebound. No evidence of tenderness throughout. Back: No spinal tenderness. No costovertebral tenderness. Full range of motion. Skin: Warm, dry with normal turgor. Normal color with no rashes, no lesions, and no evidence of cellulitis. MS/ Extremity: Pulses equal, no cyanosis. Neurovascular intact. Full, normal range of motion. Neuro: Awake and alert, GCS 15, oriented to person, place, time, and situation. Cranial nerves II-XII grossly intact. Motor strength 5/5 in all extremities. Sensory grossly intact. Cerebellar exam normal. Normal gait. Vital Signs: 18:04 BP 152 / 87; Pulse 78; Resp 16; Temp 96.8; Pulse Ox 99% on R/A; Weight 117.93 kg; iw Height 5 ft. 8 in. (172.72 cm); 19:15 BP 127 / 58; Pulse 69; Resp 20; Pulse Ox 100% ; Pain 8/10; ag7 18:04 Body Mass Index 39.53 (117.93 kg, 172.72 cm) iw MDM: 18:15 Patient medically screened. jr8 19:21 Data reviewed: vital signs, nurses notes, lab test result(s), EKG, radiologic studies, jr8 CT scan, plain films. Data interpreted: Pulse oximetry: on room air is 99 %. Interpretation: normal. Counseling: I had a detailed discussion with the patient and/or guardian regarding: the historical points, exam findings, and any diagnostic results supporting the discharge/admit diagnosis, lab results, radiology results, the need for outpatient follow up, a family practitioner, to return to the emergency department if symptoms worsen or persist or if there are any questions or concerns that arise at home. ED course: Discussed with patient that there is no acute radiologic findings of any pulmonary vascular disease process or arterial concern. EKG unremarkable, troponin negative, rest of blood work without acute findings. Recommended following up with PCP in the next couple days and if he were to worsening point time to come back. Most likely atypical chest pain probably secondarily due to muscle. Patient good with this at this time will follow up and/or come back if needed.. 02/06 18:11 Order name: Basic Metabolic Panel; Complete Time: 18:45 8 02/06 18:11 Order name: CBC with Diff; Complete Time: 18:45 02/06 18:11 Order name: Magnesium; Complete Time: 18:45 8 02/06 18:11 Order name: NT PRO-BNP; Complete Time: 18:45 8 02/06 18:11 Order name: Troponin HS; Complete Time: 18:45 02/06 18:11 Order name: XRAY Chest (1 view); Complete Time: 19:21 8 02/06 18:11 Order name: EKG; Complete Time: 18:12 8 02/06 18:11 Order name: Cardiac monitoring; Complete Time: 18:18 8 02/06 18:11 Order name: EKG - Nurse/Tech; Complete Time: 18:18 8 02/06 18:11 Order name: IV Saline Lock; Complete Time: 18:18 02/06 18:11 Order name: Labs collected and sent; Complete Time: 18:18 02/06 18:11 Order name: O2 Per Protocol; Complete Time: 18:18 02/06 18:11 Order name: O2 Sat Monitoring; Complete Time: 18:18 02/06 18:48 Order name: CT Chest For PE Angio; Complete Time: 19:21 jr8 Administered Medications: No medications were administered Disposition Summary: 02/06/22 19:26 Discharge Ordered Location: Home [facility] Problem: new jr8 Symptoms: have improved jr8 Condition: Stable jr8 Diagnosis - Chest pain, unspecified jr8 - Upper Back Pain jr8 Followup: jr8 - With: Private Physician - When: 2 - 3 days - Reason: Recheck today's complaints, Continuance of care, Re-evaluation by your physician Discharge Instructions: - Discharge Summary Sheet jr8 - Nonspecific Chest Pain, Adult jr8 - Chest Wall Pain jr8 - Muscle Pain, Adult jr8 Forms: - Medication Reconciliation Form jr8 - Thank You Letter jr8 - Antibiotic Education jr8 - Prescription Opioid Use jr8 Prescriptions: - Mobic 7.5 mg Oral Tablet - take 1 tablet by ORAL route once daily take with food; 20 tablet; Refills: 0, jr8 Product Selection Permitted Signatures: Dispatcher [employer] Araceli Gonzáles RN RN iw Bryn Cohn PA PA jr8
[2022-02-06 22:42] VITALS: TEMP 96.8
[2022-02-06 22:43] VITALS: BP 127/58; O2SAT 100
--- NOTE | 2022-02-07 10:19 | EKG ---
Test Date: 2022-02-06 Test Time: 18:17:07 Web Site Admin: CHACHA MEASUREMENT RESULTS: Intervals: Rate: 80 HI: 158 QRSD: 92 QT: 346 QTc: 399 [place]: P: 35 HI: 158 QRS: 55 T: 23 INTERPRETIVE STATEMENTS: Normal sinus rhythm RSR' or QR pattern in V1 suggests right ventricular conduction delay Borderline ECG Compared to ECG 02/21/2021 15:12:02 RSR' in V1 or V2 now present Sinus tachycardia no longer present Electronically Signed On 02-07-22 10:17:30 CDT by Juanito Coffey
== END 2022-02-06 19:43 | disposition home or self-care (01) ==
LOC: ER 17:55
DX: R07.9 Chest pain, unspecified (principal); M54.9 Dorsalgia, unspecified; E11.9 Type 2 diabetes mellitus without complications; E78.00 Pure hypercholesterolemia, unspecified; I10 Essential (primary) hypertension
CPT/HCPCS: 93005; 85025; 80048; 36415; 83735; 84484; 83880; 71275; 71045; Q9967; 99284